=== PATIENT | female | born 1940 | race Caucasian/White ===

== ENCOUNTER → 2017-08-13 | Outpatient (CLI) | payer MEDICARE | LOC: WI 09:37 | PROVIDERS: ATTEND Family Medicine | DX: Z12.31 Encounter for screening mammogram for malignant neoplasm of breast (principal) | CPT/HCPCS: 77063; G0202; 77067 ==

== ENCOUNTER → 2018-06-23 | Outpatient (CLI) | payer MEDICARE ==
--- NOTE | 2018-06-24 22:51 | XCELERA REPORT ---
[address] [address] Transthoracic Echocardiogram Report Name: NAHOMY COLLINS Age: 77 yrs Gender: Female : 1940 Patient Status: Outpatient Patient Location: [facility] Study Date: 06/23/2018 01:22 PM Procedure: A two-dimensional transthoracic echocardiogram with color flow and Doppler was performed. Study Quality: Technically suboptimal. POOR ENDOCARDIAL DEFENITION AND DOPPLER INTEROGATION.NO PARASTERNAL VIEWS OBTAINED. Reason For Study: CHF History: CHF. Ordering Physician: BEAU AUSTIN Performed By: Chastity Mancilla Interpretation Summary The left ventricle is grossly normal size. There is normal left ventricular wall thickness. Left ventricular systolic function is normal. LV EF is > THAN 65% Doppler measurements suggest impaired left ventricular relaxation, which is associated with grade I/IV or mild diastolic dysfunction The right ventricle is not well visualized secondary to technical limitations Right atrium not well visualized secondary to technical limitations The left atrial size is normal. There is no evidence of mitral valve prolapse. There is no mitral valve stenosis. There is no aortic valve stenosis No aortic regurgitation is present. Probably no tricuspid stenosis and probably no TR..Uanable to calculate RVSP due to insufficient TR jet. The pulmonic valve is not well visualized. The aortic root is not well visualized. There is no pericardial effusion. MMode/2D Measurements & Calculations IVSd: 0.93 cm LVIDd: 3.3 cm FS: 38.4 % EDV(MOD-sp4): 46.2 ml LVIDs: 2.0 cm EDV(Teich): 43.9 ml ESV(MOD-sp4): 15.7 ml LVPWd: 0.83 cm ESV(Teich): 13.2 ml EF(MOD-sp4): 66.1 % EF(Teich): 69.9 % SV(MOD-sp4): 30.5 ml Doppler Measurements & Calculations MV E max lisbeth: MV dec slope: Ao V2 max: LV V1 max P.3 cm/sec 191.0 cm/sec2 115.7 cm/sec 4.7 mmHg MV A max lisbeth: MV dec time: 0.26 sec Ao max PG: LV V1 max: 78.9 cm/sec 5.4 mmHg 108.5 cm/sec MV E/A: 0.64 Left Ventricle The left ventricle is grossly normal size. There is normal left ventricular wall thickness. Left ventricular systolic function is normal. LV EF is > THAN 65%. Doppler measurements suggest impaired left ventricular relaxation, which is associated with grade I/IV or mild diastolic dysfunction. The left ventricular wall motion is normal. There is no thrombus. Right Ventricle The right ventricle is not well visualized secondary to technical limitations. Atria Right atrium not well visualized secondary to technical limitations. The left atrial size is normal. Mitral Valve There is no evidence of mitral valve prolapse. There is no mitral valve stenosis. There is no mitral regurgitation noted. Aortic Valve There is no aortic valve stenosis. No aortic regurgitation is present. Tricuspid Valve The tricuspid valve is not well visualized secondary to technical limitations. Probably no tricuspid stenosis and probably no TR..Uanable to calculate RVSP due to insufficient TR jet. Pulmonic Valve The pulmonic valve is not well visualized. Great Vessels The aortic root is not well visualized. Effusions There is no pericardial effusion. : BEAU AUSTIN > Sharmin Westbrook
== END ==
LOC: SP 13:58
PROVIDERS: ATTEND Family Medicine
DX: I50.32 Chronic diastolic (congestive) heart failure (principal)
CPT/HCPCS: 93306

== ENCOUNTER 2018-08-17 18:54 | Emergency (ER) | payer MEDICARE ==
[2018-08-17 19:22] LABS: APPEARANCE,URINE SLIGHTLY-CLOUDY; BILIRUBIN,URINE NEGATIVE (NEGATIVE); COLOR,URINE STRAW; GLUCOSE, URINE NEGATIVE (NEGATIVE); KETONES,URINE NEGATIVE (NEGATIVE); LEUKOCYTE ESTERASE,URINE NEGATIVE (NEGATIVE); NITRITE,URINE NEGATIVE (NEGATIVE); PROTEIN,URINE NEGATIVE (NEGATIVE); URINE SPECIFIC GRAVITY 1.006; UROBILINOGEN,URINE NEGATIVE mg/dL (<2.0)
[2018-08-17] MEDS ORDERED: NORMAL SALINE 500 ML IV ONE (19:39)
--- NOTE | 2018-08-17 19:39 | ER Document Report ---
ED Medical Screen (RME) - General Chief Complaint: Dizziness Stated Complaint: FALL/DIZZY Time Seen by Provider: 08/17/18 19:31 Mode of Arrival: Ambulatory Information source: Patient, [facility] Records Notes: 77-year-old female with hypertension, hyperlipidemia, depression presents with complaint of dizziness, lightheadedness that started 3 hours prior to arrival. Patient states that she stood up and immediately felt like she was going to fall over. She states that she has felt off balance since that time. She denies falling today. She denies any chest pain, slurred speech, focal weakness. Patient has had prior similar symptoms when she was "dehydrated". She denies any vomiting, diarrhea. She states she has been drinking water appropriately. She denies any recent illness. I have greeted and performed a rapid initial assessment of this patient. A comprehensive ED assessment and evaluation of the patient, analysis of test results and completion of medical decision making process we will be contacted by additional ED providers. PHYSICAL EXAMINATION: Vital signs reviewed GENERAL: Well-appearing, well-nourished and in no acute distress. LUNGS: No respiratory distress Musculoskeletal: Normal range of motion NEUROLOGICAL: Normal speech, cranial nerves II through XII intact PSYCH: Normal mood, normal affect. SKIN: Warm, Dry, normal turgor, no rashes or lesions noted. TRAVEL OUTSIDE OF THE [place] IN LAST 30 DAYS: No - HPI Onset: Just prior to arrival Onset/Duration: Sudden, Persistent Quality of pain: No pain Associated Symptoms: Dizzy/lightheaded. denies: Chest pain, Headache, Nausea, Shortness of breath Exacerbated by: Walking Relieved by: Remaining still Similar symptoms previously: Yes Recently seen / treated by doctor: No - Related Data Smoking: Non-smoker Frequency of alcohol use: Occasional Drug Abuse: None Allergies/Adverse Reactions: No Known Allergies Allergy (Unverified 06/10/12 12:40) Past Medical History - Past Medical History Cardiac Medical History: Reports: Hx Hypercholesterolemia, Hx Hypertension - MEDICATION Denies: Hx Heart Attack Pulmonary Medical History: Reports: Hx Asthma - CHILDHOOD Neurological Medical History: Denies: Hx Cerebrovascular Accident, Hx Seizures GI Medical History: Reports: Hx Hiatal Hernia - had repair. Denies: Hx Hepatitis, Hx Ulcer Psychiatric Medical History: Reports: Hx Depression Infectious Medical History: Denies: Hx Hepatitis Past Surgical History: Reports: Hx Bowel Surgery - diverticulum, Hx Hysterectomy , Hx Mastectomy - right/RESTRICTED RIGHT ARM. Denies: Hx Open Heart Surgery, Hx Pacemaker Physical Exam - Vital signs Vitals: Temp Pulse Resp BP Pulse Ox 98.3 F 89 20 145/90 H 96 08/17/18 19:08 08/17/18 19:08 08/17/18 19:08 08/17/18 19:08 08/17/18 19:08 Course - Vital Signs Vital signs: Temp Pulse Resp BP Pulse Ox 98.3 F 89 20 145/90 H 96 08/17/18 19:08 08/17/18 19:08 08/17/18 19:08 08/17/18 19:08 08/17/18 19:08 Doctor's Discharge - Discharge Referrals: BEAU AUSTIN MD [Primary Care Provider] - Follow up as needed
[2018-08-17] MEDS ORDERED: MECLIZINE HCL 25 MG TABLET PO ONE (19:40)
[2018-08-17 20:21] LABS: ABSOLUTE EOSINOPHILS # (AUTO) 0.4 10^3/uL (0.0-0.6); ABSOLUTE LYMPHOCYTES (AUTO) 1.8 10^3/uL (0.5-4.7); ABSOLUTE MONOCYTES (AUTO) 0.7 10^3/uL (0.1-1.4); ABSOLUTE NEUT (AUTO) 3.7 10^3/uL (1.7-8.2); BASOPHILS % (AUTO) 0.6 % (0-2); EOSINOPHILS % (AUTO) 6.1 % (0-6); HEMATOCRIT 48.2 % (36.0-47.0); HEMOGLOBIN 16.6 g/dL (12.0-15.5); LYMPHOCYTES % (AUTO) 26.9 % (13-45); MEAN CORPUSCULAR HEMOGLOBIN 31.5 pg (27.0-33.4); MEAN CORPUSCULAR HGB CONC 34.3 g/dL (32.0-36.0); MEAN CORPUSCULAR VOLUME 92 fl (80-97); MONOCYTES % (AUTO) 10.4 % (3-13); PLATELET COUNT 246 10^3/uL (150-450); RED BLOOD COUNT 5.25 10^6/uL (3.72-5.28); RED CELL DISTRIBUTION WIDTH 13.5 % (11.5-14.0); TOTAL CELLS COUNTED % (AUTO) 100 %; WHITE BLOOD COUNT 6.5 10^3/uL (4.0-10.5)
--- NOTE | 2018-08-17 20:37 | ER Document Report ---
ED Dizziness/Weakness - General Chief Complaint: Dizziness Stated Complaint: FALL/DIZZY Time Seen by Provider: 08/17/18 20:37 Mode of Arrival: Ambulatory Information source: Patient Notes: Patient is a 77-year-old female with prior history of vertigo who presents with isolated episode of dizziness resulting in a mechanical fall earlier this evening. Patient reports walking with the assistance of a cane, got out of her vehicle and felt dizzy but continued to walk. She used the restroom without difficulty, then while ambulating back to her vehicle she "stumbled" and fell to the concrete on her bottom, denies hitting her head or passing out. Patient was able to ambulate back to her vehicle but continued to feel dizzy, denies syncope, no headache or vision changes. Patient denies recent illness or fevers , no medication changes or new medications. Patient reports this is similar but worse than her previous episodes. TRAVEL OUTSIDE OF THE [place] IN LAST 30 DAYS: No - HPI Patient complains to provider of: Dizziness, Vertigo Onset: This evening Onset/Duration: Sudden, Gone Quality of pain: No pain Severity: Mild Pain Level: Denies Context: Vertigo Associated symptoms: None Exacerbated by: Change in position Baseline gait: Uses a cane - Related Data Allergies/Adverse Reactions: No Known Allergies Allergy (Unverified 06/10/12 12:40) Past Medical History - General Information source: Patient, [facility] Records - Social History Smoking Status: Never Smoker Cigarette use (# per day): No Chew tobacco use (# tins/day): No Smoking Education Provided: No Frequency of alcohol use: Occasional Drug Abuse: None Lives with: Family Family History: Reviewed & Not Pertinent Patient has suicidal ideation: No Patient has homicidal ideation: No - Past Medical History Cardiac Medical History: Reports: Hx Hypercholesterolemia, Hx Hypertension - MEDICATION Denies: Hx Heart Attack Pulmonary Medical History: Reports: Hx Asthma - CHILDHOOD EENT Medical History: Reports: None Neurological Medical History: Reports: None. Denies: Hx Cerebrovascular Accident, Hx Seizures Endocrine Medical History: Reports: None Renal/ Medical History: Reports: None. Denies: Hx Peritoneal Dialysis Malignancy Medical History: Reports: None GI Medical History: Reports: Hx Hiatal Hernia - had repair. Denies: Hx Hepatitis, Hx Ulcer Musculoskeletal Medical History: Reports None Skin Medical History: Reports None Psychiatric Medical History: Reports: Hx Depression Traumatic Medical History: Reports: None Infectious Medical History: Reports: None. Denies: Hx Hepatitis Past Surgical History: Reports: Hx Bowel Surgery - diverticulum, Hx Hysterectomy , Hx Mastectomy - right/RESTRICTED RIGHT ARM. Denies: Hx Open Heart Surgery, Hx Pacemaker - Immunizations Immunizations up to date: Yes Hx Diphtheria, Pertussis, Tetanus Vaccination: Yes Hx Pneumococcal Vaccination: 06/14/10 Review of Systems - Review of Systems -: Yes ROS unobtainable due to patient's medical condition Constitutional: No symptoms reported EENT: No symptoms reported Cardiovascular: Dizziness, Lightheaded. denies: Chest pain, Palpitations Respiratory: No symptoms reported Gastrointestinal: No symptoms reported Genitourinary: No symptoms reported Female Genitourinary: No symptoms reported Musculoskeletal: No symptoms reported Skin: No symptoms reported Hematologic/Lymphatic: No symptoms reported Neurological/Psychological: No symptoms reported -: Yes All other systems reviewed and negative Physical Exam - Vital signs Vitals: Temp Pulse Resp BP Pulse Ox 98.3 F 89 20 145/90 H 96 08/17/18 19:08 08/17/18 19:08 08/17/18 19:08 08/17/18 19:08 08/17/18 19:08 Interpretation: Normal - General General appearance: Appears well, Alert In distress: None - HEENT Head: Normocephalic, Atraumatic Eyes: Normal Pupils: PERRL - Respiratory Respiratory status: No respiratory distress Chest status: Nontender Breath sounds: Normal Chest palpation: Normal - Cardiovascular Rhythm: Regular Heart sounds: Normal auscultation Murmur: No - Abdominal Inspection: Normal Distension: No distension Bowel sounds: Normal Tenderness: Nontender Organomegaly: No organomegaly - Rectal Tenderness: No - Deferred - Genitourinary Notes: Deferred - Back Back: Normal, Nontender - Extremities General upper extremity: Normal inspection, Nontender, Normal color, Normal ROM , Normal temperature General lower extremity: Normal inspection, Nontender, Normal color, Normal ROM , Normal temperature, Normal weight bearing. No: Ottoniel's sign - Neurological Neuro grossly intact: Yes Cognition: Normal Orientation: AAOx4 [place] Coma Scale Eye Opening: Spontaneous [place] Coma Scale Verbal: Oriented Antoine Coma Scale Motor: Obeys Commands Anto[place] Coma Scale Total: 15 Speech: Normal Motor strength normal: LUE, RUE, LLE, RLE Sensory: Normal - Psychological Associated symptoms: Normal affect, Normal mood - Skin Skin Temperature: Warm Skin Moisture: Dry Skin Color: Normal Course - Re-evaluation Re-evalutation: 08/17/18 21:49 Plan is to obtain blood work, CT head, give oral meclizine, and reassess. 08/18/18 00:[address] and blood work are negative for acute pathology. Patient feels mildly improved with meclizine, was able to ambulate but still felt "spinny." We will give oral Valium and reassess. 08/18/18 04:24 Patient initially was not improved after Valium, however after oral Benadryl she has had a resolution of symptoms. Plan will be to discharge the patient home with return precautions and follow-up with her physician. The patient both understands and agrees with the plan. - Vital Signs Vital signs: Temp Pulse Resp BP Pulse Ox 98.3 F 78 16 117/80 92 08/17/18 19:08 08/17/18 21:39 08/18/18 03:01 08/18/18 03:00 08/18/18 03:01 - Laboratory Result Diagrams: 08/17/18 20:06 08/17/18 20:06 Laboratory results interpreted by me: 08/17/18 08/17/18 20:06 20:06 Hgb 16.6 H Hct 48.2 H Eosinophils % 6.1 H Potassium 3.0 L* Chloride 95 L Carbon Dioxide 37 H BUN 21 H Calcium 10.3 H - Diagnostic Test Radiology reviewed: Reports reviewed - EKG Interpretation by [facility] EKG shows normal: Sinus rhythm Rate: Normal Rhythm: NSR [place]/QRS: No: LBBB P Waves: No: KUSUM, LAE, Absent, AV Dissociation, Other Heart block present: No: 1st Degree, Mobitz 1, Mobitz 2, CHB (3rd degree block) When compared to previous EKG there are: No significant change Discharge - Discharge Clinical Impression: Vertigo Condition: Good Disposition: HOME, SELF-CARE Instructions: Vertigo ([facility]) Additional Instructions: Please follow-up with your regular physician. Return to the emergency department if you experience vision changes, gait instability, uncontrollable nausea, or any other concerning symptom. Referrals: BEAU AUSTIN MD [Primary Care Provider] - Follow up as needed Print Language: Pashto
[2018-08-17 20:44] LABS: ANION GAP 13 (5-19); BLOOD UREA NITROGEN 21 mg/dL (7-20); CALCIUM 10.3 mg/dL (8.4-10.2); CARBON DIOXIDE 37 mmol/L (22-30); CHLORIDE 95 mmol/L (98-107); GLUCOSE 110 mg/dL (75-110)
[2018-08-17] MEDS ORDERED: POTASSIUM CHLORIDE 10 MEQ CAPSULE.ER PO ONE (21:32)
--- NOTE | 2018-08-17 22:42 | RADIOLOGY REPORT (SQ) ---
CLINICAL DATA: 77-year-old female with dizziness TECHNICAL DATA: Multiple axial CT images of the brain were performed followed by sagittal and coronal reconstructed images. The CT study is performed according to ALARA (as low as reasonably achievable) or ALARA/IMAGE GENTLY, with automatic adjustment of mA and/or kV according to patient size. Performed on: 08/17/2018 at 9:54 PM Comparisons: Prior brain MRI performed on 01/07/[address] performed on 12/19/2012. FINDINGS: There is no evidence of mass, acute mass effect or midline shift. There are no acute extra-axial fluid collections. There is no evidence of acute intracranial hemorrhage. The cerebral sulci and ventricles are prominent consistent with age-related volume loss. There are scattered patchy areas of decreased subcortical and periventricular attenuation most consistent with mild chronic microangiopathy. There is no significant mucosal thickening of the paranasal sinuses. The mastoid air cells are clear. The orbital contents are grossly unremarkable. No acute osseous abnormalities are identified. No focal soft tissue abnormalities are identified. IMPRESSION: 1. There is no evidence of acute intracranial pathology. 2. There is mild age-related cerebral volume loss with findings consistent with mild chronic microangiopathy.
[2018-08-18] MEDS ORDERED: DIAZEPAM 2 MG TABLET PO ONE (00:24)
[2018-08-18] MEDS ORDERED: DIPHENHYDRAMINE HCL 25 MG CAPSULE PO ONE (02:52)
[2018-08-18 07:07] VITALS: BP 112/73
--- NOTE | 2018-08-18 12:00 | EKG REPORT ---
SEVERITY:- BORDERLINE ECG - SINUS RHYTHM BORDERLINE PROLONGED QT INTERVAL : Confirmed by: Lore Koroma 18-Aug-2018 11:59:38
== END 2018-08-18 07:07 | disposition home or self-care (01) ==
LOC: ER 18:54
DX: R42 Dizziness and giddiness (principal); I10 Essential (primary) hypertension
CPT/HCPCS: 93005; 99285; 36415; 85025; 80048; 81001; 84484; 70450; 93010; A9270 ×3; J3490

== ENCOUNTER → 2018-09-22 | Outpatient (CLI) | payer MEDICARE ==
--- NOTE | 2018-09-22 11:08 | WOMENS IMAGING REPORT ---
EXAM DESCRIPTION: 3D SCREENING MAMMO BILAT COMPLETED DATE/TIME: 09/22/2018 10:25 am REASON FOR STUDY: ROUTINE BILATERAL SCREENING;Z12.31 Z12.31 ENCNTR SCREEN MAMMOGRAM FOR MALIGNANT N EOPLASM OF JENY COMPARISON: 08/13/2017 TECHNIQUE: Standard craniocaudal and mediolateral oblique views of each breast recorded using digita l acquisition and breast tomosynthesis. LIMITATIONS: None. FINDINGS: Findings present which are benign by mammographic criteria. No suspicious masses, calcifi cations or architectural distortion. Pertinent benign findings: Old right upper outer quadrant lumpectomy site with benign coarse dense dy strophic calcification. Postsurgical changes from bilateral breast reduction. Benign bilateral sav[address] st parenchymal and vascular calcifications. Read with the assistance of CAD. .[facility] - R2 Cenova Version 1.3 .[facility] - R2 Cenova Version 1.3 .[facility] - R2 Cenova Version 2.4 .[facility] [place] R2 Cenova Version 2.4 .[facility] - R2 Back Tender Fourdrinier Version 9.2 Benign mammographic findings may include one or more of the following: Smooth masses, popcorn/rim/co arse calcifications, asymmetries, post-procedure changes, and lesions with long-standing stability. IMPRESSION: BENIGN MAMMOGRAPHIC FINDINGS. BIRADS 2 BREAST DENSITY: c. The breasts are heterogeneously dense, which may obscure small masses. BIRAD: 2 BENIGN FINDING(S) RECOMMENDATION: RECOMMENDATION: ROUTINE SCREENING COMMENT: The patient has been notified of the results by letter per SA requirements. Additional no tification policies are in place for contacting patient with suspicious or incomplete findings. Quality ID #[id number]: The [employer] recommends an annual screening mammogram for women aged 40 years or over. This facility utilizes a reminder system to ensure that all patients receive reminder letters, and/or direct phone calls for appointments. This includes reminders for routine scr eening mammograms, diagnostic mammograms, or other Breast Imaging Interventions when appropriate. Th is patient will be placed in the appropriate reminder system. The [employer] (ACR) has developed recommendations for screening MRI of the breast s in certain patient populations, to be used in conjunction with mammography. Breast MRI surveillanc e may be appropriate for women with more than 20% lifetime risk of developing breast cancer as deter mined by genetic testing, significant family history of the disease, or history of mantle radiation f or Hodgkins Disease. ACR Practice Guidelines 2008. DBT Technology DBT is a type of tomographic mammography. With conventional mammography, overlapping breast tissue ma y make lesions difficult to detect, even with good compression. DBT uses an x-ray tube that rotates a round the breast, taking images at different angles. These images are then combined to create thin sl ices of the breast that the radiologist can view as a 3D reconstruction. The LiveTop unit can perform full-field digital mammograms (2D imaging); or DBT (3D imaging); or both, in a combination mode that quickly performs both the mammogram and the tomosynthesis scan while the breast is still compressed. PQRS 6045F: Fluoroscopic imaging is not utilized for breast tomosynthesis. TECHNICAL DOCUMENTATION: FINDING NUMBER: (1) ASSESSMENT: (1) JOB ID: [id number] [employer]- All Rights Reserved Reading location - IP/workstation name: [email or web address]
== END ==
LOC: RAD 10:02
PROVIDERS: ATTEND Family Medicine
DX: Z12.31 Encounter for screening mammogram for malignant neoplasm of breast (principal)
CPT/HCPCS: 77063; 77067

== ENCOUNTER 2018-11-28 20:21 | Emergency (ER) | payer MEDICARE ==
--- NOTE | 2018-11-28 22:50 | ER Document Report ---
ED Fall - General Chief Complaint: Fall Injury Stated Complaint: BACK PAIN Time Seen by Provider: 11/28/18 22:43 Primary Care Provider: BEAU AUSTIN MD [Primary Care Provider] - Follow up in 1 week Notes: Patient is a 78-year-old female who presents to the emergency department with a chief complaint of right posterior rib pain. She was in the kitchen around 2 PM this afternoon and turn too fast and hit her back on a kitchen cabinet. She states that she fell, denies hitting her head, denies any loss of consciousness, denies any shortness of breath. When she does take a really big deep breath and that area that she hit hurts. She does have a history of allergies, hypertension, depression, hyperlipidemia, and urinary incontinence. She denies any altered mental status. She is alert and oriented. TRAVEL OUTSIDE OF THE [place] IN LAST 30 DAYS: No - Related data Allergies/Adverse Reactions: No Known Allergies Allergy (Unverified 06/10/12 12:40) Past Medical History - Social History Smoking Status: Unknown if Ever Smoked Frequency of alcohol use: None Drug Abuse: None Family History: Reviewed & Not Pertinent - Past Medical History Cardiac Medical History: Reports: Hx Hypercholesterolemia, Hx Hypertension - MEDICATION Denies: Hx Heart Attack Pulmonary Medical History: Reports: Hx Asthma - CHILDHOOD Neurological Medical History: Denies: Hx Cerebrovascular Accident, Hx Seizures Renal/ Medical History: Denies: Hx Peritoneal Dialysis GI Medical History: Reports: Hx Hiatal Hernia - had repair. Denies: Hx Hepatitis, Hx Ulcer Psychiatric Medical History: Reports: Hx Depression Infectious Medical History: Denies: Hx Hepatitis Past Surgical History: Reports: Hx Bowel Surgery - diverticulum, Hx Hysterectomy, Hx Mastectomy - right/RESTRICTED RIGHT ARM. Denies: Hx Open Heart Surgery, Hx Pacemaker - Immunizations Immunizations up to date: Yes Hx Diphtheria, Pertussis, Tetanus Vaccination: Yes Hx Pneumococcal Vaccination: 06/14/10 Review of Systems - Review of Systems Notes: REVIEW OF SYSTEMS: CONSTITUTIONAL : Denies recent illness. Denies recent unintentional weight loss. Denies fever, chills, or sweats. EENT: Denies eye, ear, throat, or mouth pain, discharge, or symptoms. Denies nasal or sinus congestion. CARDIOVASCULAR: Denies chest pain. RESPIRATORY: Denies shortness of breath, cough, congestion, difficulty breathing, or wheezing. GASTROINTESTINAL: Denies nausea, vomiting, and diarrhea. Denies abdominal pain. Denies constipation. GENITOURINARY: Denies difficulty urinating, burning, blood in urine, urgency or frequency. MUSCULOSKELETAL: See HPI SKIN: Denies rash, itchiness, or lesions HEMATOLOGIC : Denies easy bruising or bleeding. LYMPHATIC: Denies swollen, painful, enlarged glands. NEUROLOGICAL: Denies no numbness or tingling denies weakness. Denies headache. Denies altered mental status. Denies alteration in speech. PSYCHIATRIC: Denies stress, anxiety, alteration in sleep patterns, or depression. All other systems reviewed and negative. Physical Exam - Vital signs Vitals: Temp Pulse Resp BP Pulse Ox 98.3 F 90 16 137/98 H 95 11/28/18 20:25 11/28/18 20:25 11/28/18 20:25 11/28/18 20:25 11/28/18 20:25 - Notes Notes: PHYSICAL EXAMINATION: GENERAL: Appears well, healthy, well-nourished, no acute distress. HEAD: Normocephalic, atraumatic. EYES: PERRL, conjunctiva normal, all extraocular movements intact, sclera nonicteric ENT: Moist mucous membranes. NECK: Supple, no noticeable swelling, redness, rash. Normal range of motion. LUNGS: Equal breath sounds bilaterally and clear to auscultation. No wheezes rales or rhonchi. CARDIOVASCULAR: S1-S2, regular rate, regular rhythm. Radial pulses 2+, normal. ABDOMEN: Normoactive bowel sounds. Soft, nontender, no guarding, no rebound tenderness, and no masses palpated. EXTREMITIES: Normal strength and range of motion, no pitting or edema. No cyanosis. NEUROLOGICAL: Moves all extremities upon command. Strength 5/5 in all extremities. PSYCH: Normal mood, normal affect. SKIN: Warm, dry. No rash, lesions, ulcerations noted. Normal skin turgor. BACK: Tenderness to right side of back. No ecchymosis appreciated. Course - Re-evaluation Re-evalutation: 11/28/18 23:45 Patient's x-rays are negative for any acute fracture. She will be sent home with Tylenol for pain. She will follow-up with her primary care provider. I do not suspect pneumothorax, pneumonia, or any life-threatening etiology at this time. Verbal discharge instructions were given to the patient. They verbalized understanding. They are stable for discharge. - Vital Signs Vital signs: Temp Pulse Resp BP Pulse Ox 98.3 F 82 16 135/82 H 97 11/28/18 20:25 11/29/18 00:08 11/29/18 00:08 11/29/18 00:08 11/29/18 00:08 Discharge - Discharge Clinical Impression: Fall Condition: Stable Disposition: HOME, SELF-CARE Additional Instructions: You were seen today in the emergency department after a fall and rib pain. Fortunately, there is no fracture. Please follow-up with your primary care provider in regards to this visit. You can take Tylenol as needed for the pain. Although it hurts, please still try to take nice deep breaths in to prevent pneumonia. If you develop a fever greater than 100.4 F, have a cough, or have any symptoms that are worrisome to you, please return to the emergency department. Referrals: BEAU AUSTIN MD [Primary Care Provider] - Follow up in 1 week
--- NOTE | 2018-11-28 23:40 | RADIOLOGY REPORT (SQ) ---
EXAM DESCRIPTION: XR RIBS UNILATERAL WITH CHEST COMPLETED DATE/TME: 11/28/2018 22:50 CLINICAL HISTORY: 78 years, Female, Hit rib Comparison: None FINDINGS: No focal lung consolidation. No pleural effusion. No pneumothorax. Cardiac and mediastinal silhouette is unremarkable. Dedicated views of the right ribs show no acute displaced rib fractures. Soft tissues are unremarkable. IMPRESSION: No acute findings. No focal lung consolidation.
[2018-11-29 00:13] VITALS: BP 135/82
== END 2018-11-29 00:10 | disposition home or self-care (01) ==
LOC: ER 20:21
DX: M54.9 Dorsalgia, unspecified (principal); R07.81 Pleurodynia; W22.8XXA Striking against or struck by other objects, initial encounter; I10 Essential (primary) hypertension; Z79.899 Other long term (current) drug therapy; J45.909 Unspecified asthma, uncomplicated
CPT/HCPCS: 99283

== ENCOUNTER → 2019-09-29 | Outpatient (CLI) | payer MEDICARE, OTHER ==
--- NOTE | 2019-09-29 11:11 | WOMENS IMAGING REPORT ---
EXAM DESCRIPTION: 3D SCREENING MAMMO BILAT COMPLETED DATE/TIME: 09/29/2019 10:31 am REASON FOR STUDY: Z12.31 ENCOUNTER FOR SCREENING MAMMOGRAM FOR MALIGNANT NEOPLASM OF BREAST Z12.31 ENCNTR SCREEN MAMMOGRAM FOR MALIGNANT NEOPLASM OF JENY COMPARISON: 2017 to 2018 EXAM PARAMETERS: Views: Standard craniocaudal and mediolateral oblique views of each breast recorded using digital acquisition and breast tomosynthesis. Read with the assistance of CAD. .[facility] - R2 Model [employer] Maker Plaster Version 9.2 LIMITATIONS: None. FINDINGS: No suspicious masses, suspicious calcifications or architectural distortion. No areas of c oncern. IMPRESSION: NEGATIVE MAMMOGRAM. BIRADS 1. BREAST DENSITY: c. The breasts are heterogeneously dense, which may obscure small masses. BIRAD: ASSESSMENT: 1 NEGATIVE RECOMMENDATION: ROUTINE SCREENING COMMENT: The patient has been notified of the results by letter per MQSA requirements. Additional no tification policies are in place for contacting patient with suspicious or incomplete findings. Quality ID #[id number]: The [employer] recommends an annual screening mammogram for women aged 40 years or over. This facility utilizes a reminder system to ensure that all patients receive reminder letters, and/or direct phone calls for appointments. This includes reminders for routine scr eening mammograms, diagnostic mammograms, or other Breast Imaging Interventions when appropriate. Th is patient will be placed in the appropriate reminder system. TECHNICAL DOCUMENTATION: FINDING NUMBER: (1) ASSESSMENT: (1) JOB ID: [id number] [employer]- All Rights Reserved Reading location - IP/workstation name: [email or web address]
== END ==
LOC: WI 10:06
PROVIDERS: ATTEND Family Medicine
DX: Z12.31 Encounter for screening mammogram for malignant neoplasm of breast (principal)
CPT/HCPCS: 77063; 77067

== ENCOUNTER 2020-08-17 08:25 | Inpatient (IN) | payer MEDICARE ==
[2020-08-17] MEDS ORDERED: NORMAL SALINE 1000 ML 1,000 ML IV ONE ×2 (09:17→13:34)
[2020-08-17] MEDS ORDERED: MORPHINE SULFATE 10 MG/ML INJ IV ONE (09:22)
[2020-08-17] MEDS ORDERED: ONDANSETRON HCL INJ/PF 4 MG/2 ML SDV IV ONE (09:22)
[2020-08-17 09:26] LABS: ABSOLUTE LYMPHOCYTES (AUTO) 0.8 10^3/uL (0.5-4.7); ABSOLUTE MONOCYTES (AUTO) 0.3 10^3/uL (0.1-1.4); ABSOLUTE NEUT (AUTO) 9.7 10^3/uL (1.7-8.2); BASOPHILS % (AUTO) 0.1 % (0-2); EOSINOPHILS % (AUTO) 0.1 % (0-6); HEMATOCRIT 46.9 % (36.0-47.0); HEMOGLOBIN 15.5 g/dL (12.0-15.5); LYMPHOCYTES % (AUTO) 7.6 % (13-45); MEAN CORPUSCULAR HEMOGLOBIN 30.5 pg (27.0-33.4); MEAN CORPUSCULAR VOLUME 92 fl (80-97); MONOCYTES % (AUTO) 2.7 % (3-13); PLATELET COUNT 195 10^3/uL (150-450); RED BLOOD COUNT 5.08 10^6/uL (3.72-5.28); RED CELL DISTRIBUTION WIDTH 13.9 % (11.5-14.0); SEGMENTED NEUTROPHILS % (AUTO) 89.5 % (42-78); TOTAL CELLS COUNTED % (AUTO) 100 %; WHITE BLOOD COUNT 10.8 10^3/uL (4.0-10.5)
[2020-08-17 09:28] LABS: INTERNATIONAL RATION (INR) 1.12; PROTHROMBIN TIME 14.6 SEC (11.4-15.4)
[2020-08-17 09:30] LABS: PARTIAL THROMBOPLASTIN TIME 30.9 SEC (23.5-35.8)
[2020-08-17 09:38] LABS: ALBUMIN 4.7 g/dL (3.5-5.0); ALKALINE PHOSPHATASE 82 U/L (38-126); ANION GAP 11 (5-19); ASPARTATE AMINO TRANSFERASE 37 U/L (14-36); BILIRUBIN,DIRECT 0.2 mg/dL (0.0-0.4); BILIRUBIN,TOTAL 1.4 mg/dL (0.2-1.3); BLOOD UREA NITROGEN 16 mg/dL (7-20); CALCIUM 9.9 mg/dL (8.4-10.2); CARBON DIOXIDE 30 mmol/L (22-30); CHLORIDE 100 mmol/L (98-107); GLUCOSE 147 mg/dL (75-110); POTASSIUM 3.3 mmol/L (3.6-5.0); TOTAL PROTEIN 7.8 g/dL (6.3-8.2)
--- NOTE | 2020-08-17 10:06 | RADIOLOGY REPORT (SQ) ---
EXAM DESCRIPTION: ACUTE ABDOMEN SERIES IMAGES COMPLETED DATE/TIME: 08/17/2020 9:41 am REASON FOR STUDY: abd pain COMPARISON: PA view of the chest from 11/28/2018. NUMBER OF VIEWS: Three views. TECHNIQUE: An AP view of the chest and AP supine and upright views of the abdomen were obtained. LIMITATIONS: None. FINDINGS: CHEST: The cardiac silhouette is enlarged. There is no consolidation, pleural effusion or pneumothorax. FREE AIR: None. BOWEL GAS PATTERN: There is a cluster of air-filled dilated loops of bowel in the left upper quadrant . There is a relative paucity of gas in the remainder of the abdomen. CALCIFICATIONS: The round density in the left upper quadrant is of unclear origin. HARDWARE: Sacral stimulator. SOFT TISSUES: No acute gross abnormality. BONES: Degenerative spondylosis and levoconvex curvature of the lumbar spine. OTHER: No other findings. IMPRESSION: 1. Cardiomegaly without a superimposed acute cardiopulmonary process. 2. Cluster of air-filled dilated loops of bowel in the left upper quadrant. Correlation with a CT is recommended to exclude a mechanical obstruction. TECHNICAL DOCUMENTATION: JOB ID: [id number] 2010 [employer]- All Rights Reserved Reading location - IP/workstation name: [email or web address]
--- NOTE | 2020-08-17 10:16 | ER Document Report ---
Entered by KARTIK MCCARTY SCRIBE 08/17/20 0854 Acting as scribe for:YARY LUNA MD ED GI/ - General Chief Complaint: Abdominal Pain Stated Complaint: ABDOMINAL PAIN Time Seen by Provider: 08/17/20 08:44 Primary Care Provider: BEAU AUSTIN MD [Primary Care Provider] - Follow up as needed Mode of Arrival: Ambulatory Information source: Patient Notes: This 79 year old female patient presents to the ED today with complaints of bila teral lower quadrant abdominal pain that started yesterday afternoon. Patient describes the pain as gas. She states that she ate a piece of sausage Thursday night that wasn't completely cooked. She reports that her last bowel movement was x3 days ago and that she usually has bowel movements every x3 days. She notes sitting on the commode all night yesterday without any success or passing gas; no bowel movement this morning as well. She did not eat this morning. She discloses a history of hemorrhoids, but denies taking any stool softeners. Brother at bedside reports that the patient has a history of impacted bowel x15 years ago and that these symptoms are similar. Denies fever, chills, nausea, vomiting, diarrhea, rectal bleeding, or chest pain. TRAVEL OUTSIDE OF THE [place] IN LAST 30 DAYS: No - Related Data Allergies/Adverse Reactions: No Known Allergies Allergy (Unverified 06/10/12 12:40) Past Medical History - General Information source: Patient, [facility] Records - Social History Smoking Status: Never Smoker Cigarette use (# per day): No Chew tobacco use (# tins/day): No Smoking Education Provided: No Frequency of alcohol use: None Drug Abuse: None Lives with: Family Family History: Reviewed & Not Pertinent Patient has suicidal ideation: No Patient has homicidal ideation: No - Past Medical History Cardiac Medical History: Reports: Hx Hypercholesterolemia, Hx Hypertension - MEDICATION Pulmonary Medical History: Reports: Hx Asthma - CHILDHOOD GI Medical History: Reports: Hx Hiatal Hernia - had repair Psychiatric Medical History: Reports: Hx Depression Past Surgical History: Reports: Hx Bowel Surgery - diverticulum, Hx Hysterectomy, Hx Mastectomy - right/RESTRICTED RIGHT ARM - Immunizations Immunizations up to date: Yes Hx Diphtheria, Pertussis, Tetanus Vaccination: Yes Hx Pneumococcal Vaccination: 06/14/10 Review of Systems - Review of Systems Constitutional: See HPI. denies: Chills, Fever EENT: No symptoms reported Cardiovascular: See HPI. denies: Chest pain Respiratory: No symptoms reported Gastrointestinal: See HPI, Abdominal pain, Constipation, Last bowel movement - 08/14/2020. denies: Diarrhea, Nausea, Vomiting, Rectal bleeding Genitourinary: No symptoms reported Female Genitourinary: No symptoms reported Musculoskeletal: No symptoms reported Skin: No symptoms reported Hematologic/Lymphatic: No symptoms reported Neurological/Psychological: No symptoms reported -: Yes All other systems reviewed and negative Physical Exam - Vital signs Vitals: Temp Pulse Resp BP Pulse Ox 98.0 F 112 H 18 125/68 95 08/17/20 08:31 08/17/20 08:31 08/17/20 08:31 08/17/20 08:31 08/17/20 08:31 Interpretation: Normal - General General appearance: Alert In distress: Moderate - HEENT Head: Normocephalic, Atraumatic Eyes: Normal Pupils: PERRL Neck: Normal, Supple - Respiratory Respiratory status: No respiratory distress Chest status: Nontender Breath sounds: Decreased air movement - Diminished breath sounds Chest palpation: Normal - Cardiovascular Rhythm: Regular Heart sounds: Normal auscultation Murmur: No Friction rub: No Gallop: None auscultated - Abdominal Inspection: Normal Distension: No distension Bowel sounds: Hypoactive Tenderness: Tender - Bilateral lower quadrant tenderness to palpation, Rebound - LLQ Organomegaly: No organomegaly - Back Back: Normal, Nontender - Extremities General upper extremity: Normal inspection General lower extremity: Normal inspection. No: Edema - Neurological Neuro grossly intact: Yes Orientation: AAOx4 [place] Coma Scale Eye Opening: Spontaneous [place] Coma Scale Verbal: Oriented [place] Coma Scale Motor: Obeys Commands Anto[place] Coma Scale Total: 15 - Psychological Associated symptoms: Normal affect, Normal mood - Skin Skin Temperature: Warm Skin Moisture: Dry Skin Color: Normal Course - Re-evaluation Re-evalutation: 08/17/20 13:[address] abdomen and pelvis oral and IV contrast study shows acute appendicitis and abnormal position of the distended cecum in the left upper quadrant consider relation for a cecal volvulus. - Vital Signs Vital signs: Temp Pulse Resp BP Pulse Ox 98.0 F 112 H 18 125/68 95 08/17/20 08:31 08/17/20 08:31 08/17/20 08:31 08/17/20 08:31 08/17/20 08:31 08/17/20 13:51 Vital signs show sinus tachycardia at 112 afebrile - Laboratory Result Diagrams: 08/17/20 08:56 08/17/20 08:56 Laboratory results interpreted by me: 08/17/20 08/17/20 08/17/20 08:56 08:56 10:08 WBC 10.8 H Lymph % (Auto) 7.6 L [place] % (Auto) 2.7 L Absolute Neuts (auto) 9.7 H Seg Neutrophils % 89.5 H Potassium 3.3 L Glucose 147 H Total Bilirubin 1.4 H AST 37 H Lipase 19.3 L Urine Protein 30 H Urine Ketones 80 H Urine Blood SMALL H Ur Leukocyte Esterase TRACE H Laboratory abnormalities show white blood cell count 10.5 and a bilirubin of 1.4 lipase of 19 potassium of 3.3 08/17/20 13:53 08/17/20 08:56 08/17/20 08:56 MCV 92 fl (80-97) 08/17/20 08:56 MCH 30.5 pg (27.0-33.4) 08/17/20 08:56 MCHC 33.0 g/dL (32.0-36.0) 08/17/20 08:56 RDW 13.9 % (11.5-14.0) 08/17/20 08:56 Seg Neutrophils % 89.5 % (42-78) H 08/17/20 08:56 Chloride 100 mmol/L (98-107) 08/17/20 08:56 Carbon Dioxide 30 mmol/L (22-30) 08/17/20 08:56 Anion Gap 11 (5-19) 08/17/20 08:56 Est GFR ( Amer) > 60 (>60) 08/17/20 08:56 Glucose 147 mg/dL (75-110) H 08/17/20 08:56 Lactic Acid 1.7 mmol/L (0.7-2.1) 08/17/20 10:08 Calcium 9.9 mg/dL (8.4-10.2) 08/17/20 08:56 Total Bilirubin 1.4 mg/dL (0.2-1.3) H 08/17/20 08:56 AST 37 U/L (14-36) H 08/17/20 08:56 Alkaline Phosphatase 82 U/L (38-126) 08/17/20 08:56 Total Protein 7.8 g/dL (6.3-8.2) 08/17/20 08:56 Albumin 4.7 g/dL (3.5-5.0) 08/17/20 08:56 Lipase 19.3 U/L (23-300) L 08/17/20 08:56 Urine Color YELLOW 08/17/20 10:08 Urine Appearance SLIGHTLY-CLOUDY 08/17/20 10:08 Urine pH 5.0 (5.0-9.0) 08/17/20 10:08 Ur Specific [place] 1.024 08/17/20 10:08 Urine Protein 30 mg/dL (NEGATIVE) H 08/17/20 10:08 Urine Glucose (UA) NEGATIVE mg/dL (NEGATIVE) 08/17/20 10:08 Urine Ketones 80 mg/dL (NEGATIVE) H 08/17/20 10:08 Urine Blood SMALL (NEGATIVE) H 08/17/20 10:08 Urine Nitrite NEGATIVE (NEGATIVE) 08/17/20 10:08 Ur Leukocyte Esterase TRACE (NEGATIVE) H 08/17/20 10:08 Urine WBC (Auto) 1 /HPF 08/17/20 10:08 Urine RBC (Auto) 1 /HPF 08/17/20 10:08 08/17/20 08:56 Troponin I < 0.012 - Diagnostic Test Radiology reviewed: Image reviewed, Reports reviewed Radiology results interpreted by me: 08/17/20 13:38 Acute Abdomen Series 08/17/20 09:15 IMPRESSION: 1. Cardiomegaly without a superimposed acute cardiopulmonary process. 2. Cluster of air-filled dilated loops of bowel in the left upper quadrant. Correlation with a CT is recommended to exclude a mechanical obstruction. Abdomen/Pelvis CT 08/17/20 12:00 IMPRESSION: 1. Findings as detailed above consistent with an acute appendicitis. There is no periappendiceal abscess. 2. Abnormal position of the distended cecum in the left upper quadrant - consider surgical evaluation for a cecal volvulus. 3. Questionable nodule in the right perihepatic space (between the 10th and 11th ribs on image 24 of series 3) that could represent an exophytic hepatic mass. Consider further evaluation with a nonemergent ultrasound. 08/17/20 13:53 Acute abdominal series plain film x-rays shows cardiomegaly but no acute cardiopulmonary process flat and upright abdomen shows a cluster of air filled dilated loops of bowel Abdominal pelvis CT with IV and oral contrast shows a distended distended cecum in the left upper quadrant consistent with a cecal volvulus and acute appendicitis. Case was discussed with Dr. Heller - EKG Interpretation by Me Additional EKG results interpreted by me: 08/17/20 13:55 Twelve-lead EKG shows sinus tachycardia rate of 104 normal axis normal intervals [place] QRS and QT intervals. No acute ST elevation to suggest a STEMI - Consults Dr. Heller, Surgicalist Time consulted: 13:35 Consulted provider: will come to ER Discharge - Discharge Clinical Impression: Acute appendicitis, Cecal volvulus, Hypokalemia Condition: Serious Disposition: ADMITTED INPATIENT Admitting Provider: Surgicalist - Pnia BEDOYA Unit Admitted: Surgical Floor Referrals: BEAU AUSTIN MD [Primary Care Provider] - Follow up as needed I personally performed the services described in the documentation, reviewed and edited the documentation which was dictated to the scribe in my presence, and it accurately records my words and actions.
[2020-08-17 10:34] LABS: APPEARANCE,URINE SLIGHTLY-CLOUDY; BILIRUBIN,URINE NEGATIVE (NEGATIVE); COLOR,URINE YELLOW; GLUCOSE, URINE NEGATIVE (NEGATIVE); KETONES,URINE 80 mg/dL (NEGATIVE); LEUKOCYTE ESTERASE,URINE TRACE (NEGATIVE); NITRITE,URINE NEGATIVE (NEGATIVE); PROTEIN,URINE 30 mg/dL (NEGATIVE); URINE SPECIFIC GRAVITY 1.024; UROBILINOGEN,URINE NEGATIVE mg/dL (<2.0)
--- NOTE | 2020-08-17 13:27 | RADIOLOGY REPORT (SQ) ---
EXAM DESCRIPTION: CT ABD/PELVIS WITH IV ORAL IMAGES COMPLETED DATE/TIME: 08/17/2020 1:03 pm REASON FOR STUDY: abd pain COMPARISON: Abdominal radiographs from 08/17/2020. TECHNIQUE: CT scan of the abdomen and pelvis performed using helical scanning technique with dynamic intravenous contrast injection. No oral contrast. Images reviewed with lung, soft tissue, and bone windows. Reconstructed coronal and sagittal MPR images reviewed. Delayed images for evaluation of the urinary system also acquired. All images stored on PACS. All CT scanners at this facility use dose modulation, iterative reconstruction, and/or weight based d osing when appropriate to reduce radiation dose to as low as reasonably achievable (ALARA). [facility]: Dose Right [facility]: CareDose [facility]: Dose Right [facility]: Teradose 4D [facility]: [employer] CONTRAST TYPE AND DOSE: Contrast/concentration: Isovue 350.00 mmol/ml; Total Contrast Delivered: 69. 9 ml; Total Saline Delivered: 65.0 ml RENAL FUNCTION: GFR > 60. RADIATION DOSE: CT Rad equipment meets quality standard of care and radiation dose reduction techniq ues were employed. CTDIvol: 5.0 - 6.7 mGy. DLP: 599 mGy-cm. LIMITATIONS: None. FINDINGS: LOWER CHEST: Cardiomegaly and hiatal hernia. LIVER: The morphology of the liver is noncirrhotic. The portal veins are patent. There is an questi onable nodule in the right perihepatic space (between the 10th and 11th ribs on image 24 of series 3) that could represent an exophytic hepatic mass. SPLEEN: No splenomegaly or splenic mass. PANCREAS: No acute gross abnormality of the pancreas GALLBLADDER: No acute gross abnormality of the gallbladder. ADRENAL GLANDS: No mass or asymmetry. RIGHT KIDNEY AND URETER: No solid mass, hydronephrosis, nephrolithiasis, hydroureter or ureterolithi asis. LEFT KIDNEY AND URETER: No solid mass, hydronephrosis, nephrolithiasis, hydroureter or ureterolithia sis. AORTA AND VESSELS: No aneurysm or dissection of the abdominal aorta. RETROPERITONEUM: No retroperitoneal adenopathy, hemorrhage or mass. BOWEL AND PERITONEAL CAVITY: Abnormal position of the distended cecum in the left upper quadrant. Th e appendix is dilated (it measures 11 mm) and there is associated stranding of the periappendiceal fa t. There is no extraluminal abscess, obstruction, pneumatosis or free intraperitoneal gas. APPENDIX: See above. PELVIS: The uterus is surgically absent. There is no abnormality of the adnexa that is apparent on C T. The urinary bladder is normal in appearance. ABDOMINAL WALL: Sacral stimulator. BONES: Degenerative spondylosis and facet joint arthropathy of the lumbar spine. There is no acute f racture. OTHER: No other finding. IMPRESSION: 1. Findings as detailed above consistent with an acute appendicitis. There is no periap pendiceal abscess. 2. Abnormal position of the distended cecum in the left upper quadrant - consider surgical evaluatio n for a cecal volvulus. 3. Questionable nodule in the right perihepatic space (between the 10th and 11th ribs on image 24 of series 3) that could represent an exophytic hepatic mass. Consider further evaluation with a nonemer gent ultrasound. TECHNICAL DOCUMENTATION: JOB ID: [id number] Quality ID # [id number]: Final reports with documentation of one or more dose reduction techniques (e.g., Au tomated exposure control, adjustment of the mA and/or kV according to patient size, use of iterative reconstruction technique) 2010 [employer]- All Rights Reserved Reading location - IP/workstation name: [email or web address]
[2020-08-17] MEDS ORDERED: PIPERACILLIN/TAZOBACTAM 3.375 GM VIAL IV ONE (13:32)
--- NOTE | 2020-08-17 14:19 | PDOC H&P ---
History of Present Illness Admission Date/PCP: BEAU AUSTIN MD Patient complains of: Abdominal pains History of Present Illness: NAHOMY COLLINS is a 79 year old female who started complaining of abdominal pains more around the umbilical area yesterday afternoon associated with some anorexia and constipation. Denies any nausea vomiting fever chills. She had a CT scan of the abdomen in the ED today which showed acute appendicitis with possible cecal volvulus with the cecum in the left upper quadrant. Past Medical History Cardiac Medical History: Reports: Hyperlipidema, Hypertension - MEDICATION Denies: Myocardial Infarction Pulmonary Medical History: Reports: Asthma - CHILDHOOD Neurological Medical History: Denies: Seizures GI Medical History: Reports: Hiatal Hernia - had repair Denies: Hepatitis Psychiatric Medical History: Reports: Depression Hematology: Denies: Anemia, Sickle Cell Disease Past Surgical History Past Surgical History: Reports: Hysterectomy, Mastectomy - right/RESTRICTED RIGHT ARM Denies: Amputation, Pacemaker Social History Lives with: Family Smoking Status: Never Smoker Electronic Cigarette use?: No Family History Family History: Reviewed & Not Pertinent Parental Family History Reviewed: Yes Children Family History Reviewed: No Sibling(s) Family History Reviewed.: Yes - Brother with diabetes Medication/Allergy Home Medications: Amlodipine Besylate [Norvasc 10 mg Tablet] 10 mg PO DAILY 06/10/12 Atorvastatin Calcium [Lipitor 20 mg Tablet] 20 mg PO DAILY 06/10/12 Gabapentin [Neurontin 300 mg Capsule] 300 mg PO TID 12/19/12 Aripiprazole 10 mg PO DAILY 08/17/20 Bupropion HCl [Bupropion Xl] 300 mg PO DAILY 08/17/20 Montelukast Sodium [Singulair 10 mg Tablet] 10 mg PO QHS 08/17/20 Oxybutynin Chloride [Ditropan 5 Mg Tablet] 5 mg PO DAILY 08/17/20 Allergies/Adverse Reactions: No Known Allergies Allergy (Unverified 06/10/12 12:40) Review of Systems Constitutional: PRESENT: as per HPI Gastrointestinal: PRESENT: abdominal pain, constipation Physical Exam Vital Signs: Temp Pulse Resp BP Pulse Ox 98.0 F 112 H 18 125/68 95 08/17/20 08:31 08/17/20 08:31 08/17/20 08:31 08/17/20 08:31 08/17/20 08:31 Intake & Output 1208/17/20 08/18/20 06:59 06:59 06:59 Weight 61.235 kg General appearance: PRESENT: mild distress Head exam: PRESENT: atraumatic Eye exam: PRESENT: conjunctiva pink Mouth exam: PRESENT: moist Neck exam: PRESENT: full ROM Respiratory exam: PRESENT: clear to auscultation thu Cardiovascular exam: PRESENT: RRR Pulses: PRESENT: normal radial pulses Vascular exam: PRESENT: normal capillary refill GI/Abdominal exam: PRESENT: soft, tenderness - Mild to moderate diffuse tenderness. Primarily tender around the periumbilical area. Rectal exam: PRESENT: deferred Extremities exam: PRESENT: full ROM Neurological exam: PRESENT: alert, oriented to person, oriented to place, oriented to time, oriented to situation Psychiatric exam: PRESENT: appropriate affect Skin exam: PRESENT: normal color, warm Results Laboratory Results: 08/17/20 08:56 08/17/20 08:56 08/17/20 08/17/20 08/17/20 08:56 08:56 10:08 WBC 10.8 H RBC 5.08 Hgb 15.5 Hct 46.9 MCV 92 MCH 30.5 MCHC 33.0 RDW 13.9 Plt Count 195 Seg Neutrophils % 89.5 H Sodium 140.8 Potassium 3.3 L Chloride 100 Carbon Dioxide 30 Anion Gap 11 BUN 16 Creatinine 0.60 Est GFR ( Amer) > 60 Glucose 147 H Lactic Acid 1.7 Calcium 9.9 Total Bilirubin 1.4 H AST 37 H Alkaline Phosphatase 82 Total Protein 7.8 Albumin 4.7 Lipase 19.3 L Urine Color Urine Appearance Urine pH Ur Specific [place] Urine Protein Urine Glucose (UA) Urine Ketones Urine Blood Urine Nitrite Ur Leukocyte Esterase Urine WBC (Auto) Urine RBC (Auto) 08/17/20 10:08 WBC RBC Hgb Hct MCV MCH MCHC RDW Plt Count Seg Neutrophils % Sodium Potassium Chloride Carbon Dioxide Anion Gap BUN Creatinine Est GFR ( Amer) Glucose Lactic Acid Calcium Total Bilirubin AST Alkaline Phosphatase Total Protein Albumin Lipase Urine Color YELLOW Urine Appearance SLIGHTLY-CLOUDY Urine pH 5.0 Ur Specific [place] 1.024 Urine Protein 30 H Urine Glucose (UA) NEGATIVE Urine Ketones 80 H Urine Blood SMALL H Urine Nitrite NEGATIVE Ur Leukocyte Esterase TRACE H Urine WBC (Auto) 1 Urine RBC (Auto) 1 08/17/20 08:56 Troponin I < 0.012 Impressions: Acute Abdomen Series 08/17/20 09:15 IMPRESSION: 1. Cardiomegaly without a superimposed acute cardiopulmonary process. 2. Cluster of air-filled dilated loops of bowel in the left upper quadrant. Correlation with a CT is recommended to exclude a mechanical obstruction. Abdomen/Pelvis CT 08/17/20 12:00 IMPRESSION: 1. Findings as detailed above consistent with an acute appendicitis. There is no periappendiceal abscess. 2. Abnormal position of the distended cecum in the left upper quadrant - consider surgical evaluation for a cecal volvulus. 3. Questionable nodule in the right perihepatic space (between the 10th and 11th ribs on image 24 of series 3) that could represent an exophytic hepatic mass. Consider further evaluation with a nonemergent ultrasound. Assessment & Plan - Diagnosis (1) Acute appendicitis Is this a current diagnosis for this admission?: Yes (2) Cecal volvulus Is this a current diagnosis for this admission?: Yes - Time Time Spent: 30 to 50 Minutes Anticipated Discharge Disposition: Home, Self Care Anticipated Discharge Timeframe: 1 week - Inpatient Certification Medical Necessity: Need For IV Fluids, Need for IV Antibiotics, Need for Surgery - Plan Summary Plan Summary: 79-year-old female noted abdominal pains yesterday afternoon with some anorexia and constipation. Denies any fever, chills, nausea nor vomiting. CT scan of the abdomen in the ED showed acute appendicitis with sickle dilated in the left upper quadrant suspicious for cecal volvulus. She has diffuse mild to moderate abdominal tenderness. Start IV antibiotics, rapid Covid testing, For possible exploratory laparotomy, open appendectomy and right hemicolectomy
[2020-08-17] MEDS: POTASSI CL 20 MEQ/50 ML RIDER 20 MEQ/50 ML RTUPB IV SCH ×2 (14:48→16:38)
[2020-08-17] MEDS ORDERED: ROCURONIUM BROMIDE INJ 50 MG/5 ML VIAL IV ONE (14:53)
[2020-08-17] MEDS ORDERED: SUCCINYLCHOLINE CHLORIDE INJ 200 MG/10 ML VIAL ONE (14:53)
[2020-08-17] MEDS ORDERED: GLUCAGON,HUMAN RECOMB 1 MG INJ SUBCUT PRN (15:43)
[2020-08-17] MEDS ORDERED: DEXTROSE 40% GEL 15 GM TUBE PO PRN ×2 (15:43)
[2020-08-17] MEDS ORDERED: DEXTROSE 50%-WATER 25 GM/50 ML DISP.SYRIN IV PRN ×2 (15:43)
[2020-08-17] MEDS: PANTOPRAZOLE SODIUM 40 MG VIAL IV SCH (16:38)
--- NOTE | 2020-08-17 17:05 | EKG REPORT ---
SEVERITY:- OTHERWISE NORMAL ECG - SINUS TACHYCARDIA : Confirmed by: Jorge A Gomez MD 17-Aug-2020 17:04:49
[2020-08-17] MEDS ORDERED: ONDANSETRON HCL INJ/PF 4 MG/2 ML SDV ONE (17:51)
[2020-08-17] MEDS ORDERED: DEXAMETHASONE SOD PHOSPHATE INJ 4 MG/1 ML VIAL ONE (17:51)
[2020-08-17] MEDS ORDERED: MIDAZOLAM 2 MG/2 ML INJ ONE (17:51)
[2020-08-17] MEDS ORDERED: FENTANYL CITRATE INJ/PF 100 MCG/2 ML AMPUL ONE ×3 (17:51→21:44)
[2020-08-17] MEDS ORDERED: PROPOFOL INJ 200 MG/20 ML VIAL IV ONE (17:52)
[2020-08-17] MEDS ORDERED: SUGAMMADEX SODIUM 200 MG/2 ML SDV IV ONE (17:52)
[2020-08-17] MEDS ORDERED: EPHEDRINE SULFATE INJ 50 MG/1 ML AMPULE ONE (17:53)
[2020-08-17] MEDS ORDERED: PIPERACILLIN/TAZOBACTAM 3.375 GM VIAL IV SCH (18:00)
[2020-08-17] MEDS ORDERED: ROPIVACAINE HCL 0.5% INJ/PF (5 MG/1 ML) 30 ML SDV ONE ×2 (18:44)
[2020-08-17] MEDS ORDERED: MORPHINE SULFATE 10 MG/ML INJ IV PRN (20:18)
[2020-08-17] MEDS ORDERED: PROMETHAZINE HCL INJ 25 MG/1 ML VIAL IV PRN ×2 (20:18)
[2020-08-17] MEDS ORDERED: DIPHENHYDRAMINE HCL 50 MG/ML VIAL IV PRN (20:18)
[2020-08-17] MEDS ORDERED: FENTANYL CITRATE INJ/PF 100 MCG/2 ML AMPUL IV PRN ×3 (20:18)
[2020-08-17] MEDS ORDERED: OXYCODONE-ACETAMINOPHEN 5-325 MG TABLET PO PRN ×2 (20:18)
[2020-08-17] MEDS ORDERED: MEPERIDINE HCL/PF INJ 25 MG/1 ML DISP.SYRIN IV PRN (20:18)
[2020-08-17] MEDS ORDERED: ONDANSETRON HCL INJ/PF 4 MG/2 ML SDV IV PRN (20:18)
[2020-08-17] MEDS ORDERED: MORPHINE SULFATE 10 MG/ML INJ ONE (21:44)
--- NOTE | 2020-08-17 22:25 | Operative Report ---
Operative Report DATE OF SURGERY: 08/17/20 PREOPERATIVE DIAGNOSIS: Acute appendicitis. Cecal volvulus POSTOPERATIVE DIAGNOSIS: Same OPERATION: Exploratory laparotomy, cecal resection and appendectomy with ileal ascending colostomy SURGEON: LINDA ACEVES ANESTHESIA: GA TISSUE REMOVED OR ALTERED: Cecum and appendix COMPLICATIONS: None ESTIMATED BLOOD LOSS: 50 cc QUANTITATIVE BLOOD LOSS: 50 INTRAOPERATIVE FINDINGS: Acute appendicitis with cecum was partially twisted in the left upper quadrant area. Cecum however appears viable. Cecum is in the left upper quadrant from a relatively long mesentery. PROCEDURE: After adequate general anesthesia and abdominal wall muscle block, patient was placed in supine position and the abdomen prepped and draped in the usual sterile fashion. Appropriate timeout was then called. Next a midline incision was then made at the mid epigastric area extended to just below the umbilicus. The abdominal cavity was then entered and the abdomen explored. The appendix noted to be inflamed and cecum was distended and partially twisted in the left upper quadrant area. The small bowel was run and no evidence of obstruction noted between the ileocecal valve and the ligament of Treitz. Large bowel appears to be intact and is mildly distended. Stomach was distended. An NG tube was later placed by anesthesia and eventually decompress the stomach. The ascending colon was then mobilized by dividing the attachment to the lateral gutter with the use of LigaSure. The ileum was then divided with an Endo DIAMANTE about 6 cm from the ileocecal valve. The cecum was then divided with the use of 75 cm DIAMANTE stapler with blue load. The mesentery was then divided close to the cecum and underneath the appendix and the small bowel with the use of LigaSure. The the ascending colon and distal ileum was then anastomose in a functional [id number] using 75 cm DIAMANTE stapler. The defect opening was then closed with a TA 55 blue blue load. There was good viability of the anastomotic site an adequate opening between the large and small bowel. The defect in the mesentery was then closed with interrupted sutures using 3-0 Vicryl sutures. The abdominal cavity was then irrigated copiously with at least 5 L of saline. The fascia was then closed with running suture using #1 PDS started at both ends and the tied together just above the umbilicus. Subcu was then irrigated with saline solution and the skin closed with jyothi. Sterile dressings placed over the operative site. Needle instrument sponge count were all correct. Patient brought to recovery room in extubated in satisfactory condition.
[2020-08-17] MEDS: MORPHINE SULFATE 10 MG/ML INJ IV PRN (23:09)
[2020-08-17] MEDS: DEXTROSE 5%-LACTATED RINGERS 1,000 ML IV PRN (23:11)
[2020-08-17] MEDS: PIPERACILLIN SODIUM/TAZOBACTAM 3.375 GM in NORMAL SALINE 100 ML IV SCH (23:11)
[2020-08-18] MEDS: PIPERACILLIN SODIUM/TAZOBACTAM 3.375 GM in NORMAL SALINE 100 ML IV SCH ×4 (03:34→18:34)
[2020-08-18] MEDS: MORPHINE SULFATE 10 MG/ML INJ IV PRN ×3 (03:35→19:27)
[2020-08-18] MEDS: PANTOPRAZOLE SODIUM 40 MG VIAL IV SCH ×2 (05:50→18:34)
[2020-08-18 06:27] LABS: ALBUMIN 2.6 g/dL (3.5-5.0); ALKALINE PHOSPHATASE 49 U/L (38-126); ASPARTATE AMINO TRANSFERASE 24 U/L (14-36); BILIRUBIN,DIRECT 0.1 mg/dL (0.0-0.4); BILIRUBIN,TOTAL 0.9 mg/dL (0.2-1.3); BLOOD UREA NITROGEN 9 mg/dL (7-20); CALCIUM 8.4 mg/dL (8.4-10.2); GLUCOSE 168 mg/dL (75-110); POTASSIUM 3.4 mmol/L (3.6-5.0); TOTAL PROTEIN 4.8 g/dL (6.3-8.2)
[2020-08-18 06:29] LABS: ABSOLUTE LYMPHOCYTES (AUTO) 0.4 10^3/uL (0.5-4.7); ABSOLUTE MONOCYTES (AUTO) 0.2 10^3/uL (0.1-1.4); ABSOLUTE NEUT (AUTO) 6.4 10^3/uL (1.7-8.2); EOSINOPHILS % (AUTO) 0.1 % (0-6); HEMATOCRIT 34.6 % (36.0-47.0); LYMPHOCYTES % (AUTO) 5.3 % (13-45); MEAN CORPUSCULAR HEMOGLOBIN 31.2 pg (27.0-33.4); MEAN CORPUSCULAR HGB CONC 34.4 g/dL (32.0-36.0); MEAN CORPUSCULAR VOLUME 91 fl (80-97); MONOCYTES % (AUTO) 3.2 % (3-13); PLATELET COUNT 130 10^3/uL (150-450); RED BLOOD COUNT 3.82 10^6/uL (3.72-5.28); RED CELL DISTRIBUTION WIDTH 13.3 % (11.5-14.0); SEGMENTED NEUTROPHILS % (AUTO) 91.4 % (42-78); TOTAL CELLS COUNTED % (AUTO) 100 %
[2020-08-18 06:30] LABS: HEMOGLOBIN 11.9 g/dL (12.0-15.5)
[2020-08-18 06:32] LABS: CARBON DIOXIDE 29 mmol/L (22-30); CHLORIDE 107 mmol/L (98-107)
[2020-08-18 06:35] LABS: ANION GAP 3 (5-19)
--- NOTE | 2020-08-18 08:16 | PDOC PROGRESS REPORT ---
Subjective Date:: 08/18/20 Subjective:: Now has incisional pain centered on the right lower quadrant area. NG tube drai iván small amount of cloudy light brownish fluid. Reason For Visit: ACUTE APPENDICITIS,CECAL VOLVULUS Physical Exam Vital Signs: Temp Pulse Resp BP Pulse Ox 98.1 F 88 18 115/60 98 08/17/20 23:20 08/17/20 23:20 08/17/20 23:20 08/17/20 23:20 08/17/20 23:20 Intake & Output 08/17/20 08/18/20 08/19/20 06:59 06:59 06:59 Intake Total 4018 Output Total 1225 Balance 2793 Weight 61.4 kg Exam: Abdomen is soft with mild tenderness on the incision and on the right lower quadrant. The incision site looks clean and dry. NG tube in place. Results Laboratory Results: 08/18/20 05:36 08/18/20 05:36 08/17/20 08/17/20 08/17/20 08:56 08:56 10:08 WBC 10.8 H RBC 5.08 Hgb 15.5 Hct 46.9 MCV 92 MCH 30.5 MCHC 33.0 RDW 13.9 Plt Count 195 Seg Neutrophils % 89.5 H Sodium 140.8 Potassium 3.3 L Chloride 100 Carbon Dioxide 30 Anion Gap 11 BUN 16 Creatinine 0.60 Est GFR ( Amer) > 60 Glucose 147 H Lactic Acid 1.7 Calcium 9.9 Total Bilirubin 1.4 H AST 37 H Alkaline Phosphatase 82 Total Protein 7.8 Albumin 4.7 Lipase 19.3 L Urine Color Urine Appearance Urine pH Ur Specific [place] Urine Protein Urine Glucose (UA) Urine Ketones Urine Blood Urine Nitrite Ur Leukocyte Esterase Urine WBC (Auto) Urine RBC (Auto) 08/17/20 08/18/20 08/18/20 10:08 05:36 05:36 WBC 7.0 RBC 3.82 Hgb 11.9 L D Hct 34.6 L MCV 91 MCH 31.2 MCHC 34.4 RDW 13.3 Plt Count 130 L Seg Neutrophils % 91.4 H Sodium 139.3 Potassium 3.4 L Chloride 107 Carbon Dioxide 29 Anion Gap 3 L BUN 9 Creatinine 0.50 L Est GFR ( Amer) > 60 Glucose 168 H Lactic Acid Calcium 8.4 Total Bilirubin 0.9 AST 24 Alkaline Phosphatase 49 Total Protein 4.8 L Albumin 2.6 L Lipase Urine Color YELLOW Urine Appearance SLIGHTLY-CLOUDY Urine pH 5.0 Ur Specific [place] 1.024 Urine Protein 30 H Urine Glucose (UA) NEGATIVE Urine Ketones 80 H Urine Blood SMALL H Urine Nitrite NEGATIVE Ur Leukocyte Esterase TRACE H Urine WBC (Auto) 1 Urine RBC (Auto) 1 08/17/20 08:56 Troponin I < 0.012 Impressions: Acute Abdomen Series 08/17/20 09:15 IMPRESSION: 1. Cardiomegaly without a superimposed acute cardiopulmonary process. 2. Cluster of air-filled dilated loops of bowel in the left upper quadrant. Correlation with a CT is recommended to exclude a mechanical obstruction. Abdomen/Pelvis CT 08/17/20 12:00 IMPRESSION: 1. Findings as detailed above consistent with an acute appendicitis. There is no periappendiceal abscess. 2. Abnormal position of the distended cecum in the left upper quadrant - consider surgical evaluation for a cecal volvulus. 3. Questionable nodule in the right perihepatic space (between the 10th and 11th ribs on image 24 of series 3) that could represent an exophytic hepatic mass. Consider further evaluation with a nonemergent ultrasound. Assessment & Plan - Diagnosis (1) Acute appendicitis Is this a current diagnosis for this admission?: Yes (2) Cecal volvulus Is this a current diagnosis for this admission?: Yes - Time Anticipated Discharge Disposition: Home, Self Care Anticipated Discharge Timeframe: 5 days Critical Time spent with patient: 15-24 minutes - Inpatient Certification Medical Necessity: Need For IV Fluids, Need for Pain Control, Need for IV Antibi otics - Plan Summary Plan Summary: 79-year-old female postop day 1 post resection of cecum and acute appendix with ileal ascending colon anastomosis. Patient remained stable afebrile. Hemoglobin decreased around 11.9 from 15 preop. White count is normal. Plans: Continue NG tube Okay to have ice chips Continue hydration and replace potassium Continue IV antibiotics Start DVT prophylaxis Lovenox
[2020-08-18] MEDS: DEXTROSE 5%-LACTATED RINGERS 1,000 ML IV PRN ×2 (09:15→22:27)
[2020-08-18] MEDS ORDERED: POTASSI CL 20 MEQ/50 ML RIDER 20 MEQ/50 ML RTUPB IV ONE (09:30)
[2020-08-18] MEDS ORDERED: FAMOTIDINE INJ/PF 20 MG/2 ML SDV IV SCH (10:00)
[2020-08-18] MEDS: HEPARIN SOD (PORCINE) 5,000 UNIT/ML 1 ML VIAL SUBCUT SCH ×2 (11:11→22:26)
[2020-08-19] MEDS: PIPERACILLIN SODIUM/TAZOBACTAM 3.375 GM in NORMAL SALINE 100 ML IV SCH ×5 (01:06→23:30)
[2020-08-19] MEDS: PANTOPRAZOLE SODIUM 40 MG VIAL IV SCH ×2 (05:38→17:23)
[2020-08-19] MEDS: MORPHINE SULFATE 10 MG/ML INJ IV PRN ×3 (08:49→22:24)
[2020-08-19] MEDS: DEXTROSE 5%-LACTATED RINGERS 1,000 ML IV PRN ×2 (08:50→18:47)
[2020-08-19] MEDS: HEPARIN SOD (PORCINE) 5,000 UNIT/ML 1 ML VIAL SUBCUT SCH ×2 (11:00→22:24)
--- NOTE | 2020-08-19 15:07 | PDOC PROGRESS REPORT ---
Subjective Date:: 08/19/20 Subjective:: No flatus yet. Still with the some incisional pains. Reason For Visit: ACUTE APPENDICITIS,CECAL VOLVULUS Physical Exam Vital Signs: Temp Pulse Resp BP Pulse Ox 98.9 F 59 L 16 107/61 97 08/19/20 11:44 08/19/20 11:44 08/19/20 11:44 08/19/20 11:44 08/19/20 11:44 Intake & Output 08/18/20 08/19/20 08/20/20 06:59 06:59 06:59 Intake Total 4018 2100 1000 Output Total 1225 250 Balance 2793 1850 1000 Weight 61.4 kg 64.7 kg Exam: Afebrile, abdomen is soft not distended. NG tube about 200 cc of brownish fluid. No calf tenderness Results Laboratory Results: 08/18/20 05:36 08/18/20 05:36 08/17/20 08:56 Troponin I < 0.012 Impressions: Acute Abdomen Series 08/17/20 09:15 IMPRESSION: 1. Cardiomegaly without a superimposed acute cardiopulmonary process. 2. Cluster of air-filled dilated loops of bowel in the left upper quadrant. Correlation with a CT is recommended to exclude a mechanical obstruction. Abdomen/Pelvis CT 08/17/20 12:00 IMPRESSION: 1. Findings as detailed above consistent with an acute append icitis. There is no periappendiceal abscess. 2. Abnormal position of the distended cecum in the left upper quadrant - consider surgical evaluation for a cecal volvulus. 3. Questionable nodule in the right perihepatic space (between the 10th and 11th ribs on image 24 of series 3) that could represent an exophytic hepatic mass. Consider further evaluation with a nonemergent ultrasound. Assessment & Plan - Diagnosis (1) Acute appendicitis Is this a current diagnosis for this admission?: Yes (2) Cecal volvulus Is this a current diagnosis for this admission?: Yes - Time Anticipated Discharge Disposition: Home, Self Care Anticipated Discharge Timeframe: within 72 hours Critical Time spent with patient: 15-24 minutes - Inpatient Certification Medical Necessity: Need For IV Fluids, Need for Pain Control, Need for IV Antibiotics - Plan Summary Plan Summary: 79-year-old female second day post cecectomy and appendectomy with primary ileal ascending colon Anastomosis remains stable. Plans: Continue NG tube for now. Continue IV antibiotics. Recheck electrolytes and CBC
[2020-08-20] MEDS: PANTOPRAZOLE SODIUM 40 MG VIAL IV SCH ×2 (05:15→18:07)
[2020-08-20] MEDS: PIPERACILLIN SODIUM/TAZOBACTAM 3.375 GM in NORMAL SALINE 100 ML IV SCH ×4 (05:15→23:29)
[2020-08-20] MEDS: DEXTROSE 5%-LACTATED RINGERS 1,000 ML IV PRN ×2 (05:15→18:07)
[2020-08-20] MEDS: HEPARIN SOD (PORCINE) 5,000 UNIT/ML 1 ML VIAL SUBCUT SCH ×2 (10:26→21:04)
[2020-08-20] MEDS ORDERED: KETOROLAC TROMETHAMINE INJ/PF 30 MG/1 ML SDV IV PRN (11:25)
--- NOTE | 2020-08-20 11:28 | PDOC PROGRESS REPORT ---
Subjective Date:: 08/20/20 Reason For Visit: ACUTE APPENDICITIS,CECAL VOLVULUS Patient laying in bed, wanting narcotics; has not been up in 24 hours. Grace cath and NG tube still in. Intravenous antibiotics continue. Physical Exam Vital Signs: Temp Pulse Resp BP Pulse Ox 98.7 F 59 L 19 96/41 L 95 08/20/20 07:43 08/20/20 04:06 08/20/20 04:06 08/20/20 04:06 08/20/20 04:06 Intake & Output 08/19/20 08/20/20 08/21/20 06:59 06:59 06:59 Intake Total 2100 2995 Output Total 250 1350 150 Balance 1850 1645 -150 Weight 64.7 kg 66.2 kg General appearance: PRESENT: no acute distress GI/Abdominal exam: PRESENT: other - Abdomen soft, appropriate tender. Dressing removed, and all jyothi in position. No dressing reapplied. Results Laboratory Results: 08/18/20 05:36 08/18/20 05:36 08/17/20 08:56 Troponin I < 0.012 Impressions: Acute Abdomen Series 08/17/20 09:15 IMPRESSION: 1. Cardiomegaly without a superimposed acute cardiopulmonary process. 2. Cluster of air-filled dilated loops of bowel in the left upper quadrant. Correlation with a CT is recommended to exclude a mechanical obstruction. Abdomen/Pelvis CT 08/17/20 12:00 IMPRESSION: 1. Findings as detailed above consistent with an acute appendicitis. There is no periappendiceal abscess. 2. Abnormal position of the distended cecum in the left upper quadrant - consider surgical evaluation for a cecal volvulus. 3. Questionable nodule in the right perihepatic space (between the 10th and 11th ribs on image 24 of series 3) that could represent an exophytic hepatic mass. Consider further evaluation with a nonemergent ultrasound. Assessment & Plan - Diagnosis (1) Acute appendicitis Is this a current diagnosis for this admission?: Yes Plan: Impression: Patient is 3 days status post exploratory laparotomy, CK ectomy, with stapled ileal colonic anastomosis, doing well, slow to move, evidence of sepsis. Recommendations: 1. We will hold narcotics, utilize IV Toradol and IV acetaminophen instead 2. We will discontinue Grace catheter; clamp NG tube and likely remove later today 3. Discontinue IV antibiotics. 4. We will get patient up and ambulating with her walker which she was using preoperatively. (2) Cecal volvulus Is this a current diagnosis for this admission?: Yes (3) Hypokalemia Is this a current diagnosis for this admission?: Yes - Time Anticipated Discharge Disposition: Home, Self Care Anticipated Discharge Timeframe: within 72 hours
[2020-08-20] MEDS: ACETAMINOPHEN INJ/PF 1000 MG/100 ML SDV IV SCH ×2 (12:30→17:08)
[2020-08-21] MEDS: ACETAMINOPHEN INJ/PF 1000 MG/100 ML SDV IV SCH ×4 (00:12→17:44)
[2020-08-21] MEDS: PANTOPRAZOLE SODIUM 40 MG VIAL IV SCH ×2 (05:57→17:44)
[2020-08-21] MEDS: PIPERACILLIN SODIUM/TAZOBACTAM 3.375 GM in NORMAL SALINE 100 ML IV SCH ×3 (06:34→17:44)
--- NOTE | 2020-08-21 08:22 | PDOC PROGRESS REPORT ---
Subjective Date:: 08/21/20 Subjective:: Has flatus. Hungry. Reason For Visit: ACUTE APPENDICITIS,CECAL VOLVULUS Physical Exam Vital Signs: Temp Pulse Resp BP Pulse Ox 97.5 F 58 L 18 109/51 L 92 08/21/20 00:45 08/21/20 00:45 08/21/20 00:45 08/21/20 00:45 08/21/20 00:45 Intake & Output 08/20/20 08/21/20 08/22/20 06:59 06:59 06:59 Intake Total 2995 1000 Output Total 1350 950 Balance 1645 50 Weight 66.2 kg 67.9 kg Exam: Abdomen soft, minimal tenderness around incision.Incision looks clean and dry. Results Laboratory Results: 08/18/20 05:36 08/18/20 05:36 08/17/20 08:56 Troponin I < 0.012 Impressions: Acute Abdomen Series 08/17/20 09:15 IMPRESSION: 1. Cardiomegaly without a superimposed acute cardiopulmonary process. 2. Cluster of air-filled dilated loops of bowel in the left upper quadrant. Correlation with a CT is recommended to exclude a mechanical obstruction. Abdomen/Pelvis CT 08/17/20 12:00 IMPRESSION: 1. Findings as detailed above consistent with an acute appendicitis. There is no periappendiceal abscess. 2. Abnormal position of the distended cecum in the left upper quadrant - consider surgical evaluation for a cecal volvulus. 3. Questionable nodule in the right perihepatic space (between the 10th and 11th ribs on image 24 of series 3) that could represent an exophytic hepatic mass. Consider further evaluation with a nonemergent ultrasound. Assessment & Plan - Diagnosis (1) Acute appendicitis Is this a current diagnosis for this admission?: Yes (2) Cecal volvulus Is this a current diagnosis for this admission?: Yes - Time Anticipated Discharge Disposition: Home with Home Health Anticipated Discharge Timeframe: within 48 hours - Inpatient Certification Medical Necessity: Need For IV Fluids, Risk of Complication if Not Cared For in Hospital - Plan Summary Plan Summary: 79 yo female POD #4 post cecectomy,appendectomy for acute appendicitis and cecal volvulus. Has passed flatus and feels better. Start clears and advance diet as tolerated. Off IV antibiotics. Ambulate Anticipate discharge in 48 hrs.
[2020-08-21] MEDS: HEPARIN SOD (PORCINE) 5,000 UNIT/ML 1 ML VIAL SUBCUT SCH ×2 (09:54→22:00)
[2020-08-22] MEDS: ACETAMINOPHEN INJ/PF 1000 MG/100 ML SDV IV SCH ×2 (00:24→05:24)
[2020-08-22] MEDS: DEXTROSE 5%-LACTATED RINGERS 1,000 ML IV PRN (00:24)
[2020-08-22] MEDS: PIPERACILLIN SODIUM/TAZOBACTAM 3.375 GM in NORMAL SALINE 100 ML IV SCH ×2 (00:58→05:53)
[2020-08-22] MEDS: PANTOPRAZOLE SODIUM 40 MG VIAL IV SCH (05:24)
--- NOTE | 2020-08-22 08:35 | PDOC DISCHARGE SUMMARY ---
General - Admit/Disc Date/PCP Admission Date/Primary Care Provider: 08/17/20 14:23 BEAU AUSTIN MD Discharge Date: 08/22/20 - Discharge Diagnosis Final Diagnosis: appendicitis - Assessment Summary: Patient was admitted on 08/17/2020 with acute appendicitis she was taken to the operating room where she underwent a partial cecectomy and appendectomy postoperatively she had a routine benign postop course She is started on a regular diet which she tolerated well her wound is clean and dry and she is ready for discharge home today on 08/22/2020. She has been given instructions on caring for her wound which is closed with jyothi. She will be given a follow-up appointment in 7 to 10 days in surgical clinic. She does not require or want pain pain medication at the time of discharge she will use Tylenol. She will resume her own meds when she gets home. - Additional Information Resuscitation Status: Full Code Discharge Diet: As Tolerated Discharge Activity: Activity As Tolerated, No Lifting Over 10 Pounds Referrals: JOANNE TORRES MD [ACTIVE STAFF] - 09/04/20 11:00 am Home Medications: Amlodipine Besylate [Norvasc 10 mg Tablet] 10 mg PO DAILY 06/10/12 Atorvastatin Calcium [Lipitor 20 mg Tablet] 20 mg PO DAILY 06/10/12 Gabapentin [Neurontin 300 mg Capsule] 300 mg PO TID 12/19/12 Aripiprazole 10 mg PO DAILY 08/17/20 Bupropion HCl [Bupropion Xl] 300 mg PO DAILY 08/17/20 Montelukast Sodium [Singulair 10 mg Tablet] 10 mg PO QHS 08/17/20 Oxybutynin Chloride [Ditropan 5 Mg Tablet] 5 mg PO DAILY 08/17/20 History of Present Illiness History of Present Illness: NAHOMY COLLINS is a 79 year old female Physical Exam Vital Signs: Temp Pulse Resp BP Pulse Ox 98.8 F 61 16 132/70 H 94 08/22/20 08:01 08/22/20 07:49 08/22/20 07:49 08/22/20 07:49 08/22/20 07:49 Intake & Output 08/21/20 08/22/20 08/23/20 06:59 06:59 06:59 Intake Total 2000 450 Output Total 950 Balance 1050 450 Weight 67.9 kg 68.2 kg Results Laboratory Results: WBC 7.0 10^3/uL (4.0-10.5) 08/18/20 05:36 RBC 3.82 10^6/uL (3.72-5.28) 08/18/20 05:36 Hgb 11.9 g/dL (12.0-15.5) L D 08/18/20 05:36 Hct 34.6 % (36.0-47.0) L 08/18/20 05:36 MCV 91 fl (80-97) 08/18/20 05:36 MCH 31.2 pg (27.0-33.4) 08/18/20 05:36 MCHC 34.4 g/dL (32.0-36.0) 08/18/20 05:36 RDW 13.3 % (11.5-14.0) 08/18/20 05:36 Plt Count 130 10^3/uL (150-450) L 08/18/20 05:36 Lymph % (Auto) 5.3 % (13-45) L 08/18/20 05:36 Holt % (Auto) 3.2 % (3-13) 08/18/20 05:36 Eos % (Auto) 0.1 % (0-6) 08/18/20 05:36 Baso % (Auto) 0.0 % (0-2) 08/18/20 05:36 Absolute Neuts (auto) 6.4 10^3/uL (1.7-8.2) 08/18/20 05:36 Absolute Lymphs (auto) 0.4 10^3/uL (0.5-4.7) L 08/18/20 05:36 Absolute Monos (auto) 0.2 10^3/uL (0.1-1.4) 08/18/20 05:36 Absolute Eos (auto) 0.0 10^3/uL (0.0-0.6) 08/18/20 05:36 Absolute Basos (auto) 0.0 10^3/uL (0.0-0.2) 08/18/20 05:36 Seg Neutrophils % 91.4 % (42-78) H 08/18/20 05:36 PT 14.6 SEC (11.4-15.4) 08/17/20 08:56 INR 1.12 08/17/20 08:56 APTT 30.9 SEC (23.5-35.8) 08/17/20 08:56 Sodium 139.3 mmol/L (137-145) 08/18/20 05:36 Potassium 3.4 mmol/L (3.6-5.0) L 08/18/20 05:36 Chloride 107 mmol/L (98-107) 08/18/20 05:36 Carbon Dioxide 29 mmol/L (22-30) 08/18/20 05:36 Anion Gap 3 (5-19) L 08/18/20 05:36 BUN 9 mg/dL (7-20) 08/18/20 05:36 Creatinine 0.50 mg/dL (0.52-1.25) L 08/18/20 05:36 Est GFR ( Amer) > 60 (>60) 08/18/20 05:36 Est GFR (MDRD) Non-Af > 60 (>60) 08/18/20 05:36 Glucose 168 mg/dL (75-110) H 08/18/20 05:36 Lactic Acid 1.7 mmol/L (0.7-2.1) 08/17/20 10:08 Calcium 8.4 mg/dL (8.4-10.2) 08/18/20 05:36 Total Bilirubin 0.9 mg/dL (0.2-1.3) 08/18/20 05:36 Direct Bilirubin 0.1 mg/dL (0.0-0.4) 08/18/20 05:36 Neonat Total Bilirubin Not Reportable 08/18/20 05:36 Neonat Direct Bilirubin Not Reportable 08/18/20 05:36 Neonat Indirect Bili Not Reportable 08/18/20 05:36 AST 24 U/L (14-36) 08/18/20 05:36 ALT 20 U/L (<35) 08/18/20 05:36 Alkaline Phosphatase 49 U/L (38-126) 08/18/20 05:36 Troponin I < 0.012 ng/mL 08/17/20 08:56 Total Protein 4.8 g/dL (6.3-8.2) L 08/18/20 05:36 Albumin 2.6 g/dL (3.5-5.0) L 08/18/20 05:36 Lipase 19.3 U/L (23-300) L 08/17/20 08:56 Urine Color YELLOW 08/17/20 10:08 Urine Appearance SLIGHTLY-CLOUDY 08/17/20 10:08 Urine pH 5.0 (5.0-9.0) 08/17/20 10:08 Ur Specific [place] 1.024 08/17/20 10:08 Urine Protein 30 mg/dL (NEGATIVE) H 08/17/20 10:08 Urine Glucose (UA) NEGATIVE mg/dL (NEGATIVE) 08/17/20 10:08 Urine Ketones 80 mg/dL (NEGATIVE) H 08/17/20 10:08 Urine Blood SMALL (NEGATIVE) H 08/17/20 10:08 Urine Nitrite NEGATIVE (NEGATIVE) 08/17/20 10:08 Urine Bilirubin NEGATIVE (NEGATIVE) 08/17/20 10:08 Urine Urobilinogen NEGATIVE mg/dL (<2.0) 08/17/20 10:08 Ur Leukocyte Esterase TRACE (NEGATIVE) H 08/17/20 10:08 Urine WBC (Auto) 1 /HPF 08/17/20 10:08 Urine RBC (Auto) 1 /HPF 08/17/20 10:08 Urine Bacteria (Auto) TRACE /HPF 08/17/20 10:08 Squamous Epi Cells Auto <1 /HPF 08/17/20 10:08 Urine Mucus (Auto) OCC /LPF 08/17/20 10:08 Urine Ascorbic Acid NEGATIVE (NEGATIVE) 08/17/20 10:08 Influenza A (RT-PCR) NEGATIVE (NEGATIVE) 08/17/20 14:15 Influenza B (RT-PCR) NEGATIVE (NEGATIVE) 08/17/20 14:15 RSV (RT-PCR) NEGATIVE (NEGATIVE) 08/17/20 14:15 SARS-CoV-2 Rap RNA(RT-PCR) NEGATIVE (NEGATIVE) 08/17/20 14:15 08/17/20 08:56 Troponin I < 0.012 Impressions: Acute Abdomen Series 08/17/20 09:15 IMPRESSION: 1. Cardiomegaly without a superimposed acute cardiopulmonary process. 2. Cluster of air-filled dilated loops of bowel in the left upper quadrant. Correlation with a CT is recommended to exclude a mechanical obstruction. Abdomen/Pelvis CT 08/17/20 12:00 IMPRESSION: 1. Findings as detailed above consistent with an acute appendicitis. There is no periappendiceal abscess. 2. Abnormal position of the distended cecum in the left upper quadrant - consider surgical evaluation for a cecal volvulus. 3. Questionable nodule in the right perihepatic space (between the 10th and 11th ribs on image 24 of series 3) that could represent an exophytic hepatic mass. C onsider further evaluation with a nonemergent ultrasound.
[2020-08-22 08:59] VITALS: BP 122/63
[2020-08-22] MEDS: HEPARIN SOD (PORCINE) 5,000 UNIT/ML 1 ML VIAL SUBCUT SCH (09:15)
== END 2020-08-22 09:44 | disposition home health service (06) | DRG 329 ==
LOC: ER 08:25 → EH 14:23 → 4S 17:21
PROVIDERS: ADMIT Surgery; ATTEND Surgery
PROC: 0DTH0ZZ Resection of Cecum, Open Approach (ICD-10-PCS; principal; 2020-08-17 19:30)
DX: K35.33 Acute appendicitis with perforation, localized peritonitis, and gangrene, with abscess (principal); K56.2 Volvulus; G89.18 Other acute postprocedural pain; E87.6 Hypokalemia; Z20.828 Contact with and (suspected) exposure to other viral communicable diseases; I10 Essential (primary) hypertension; E78.5 Hyperlipidemia, unspecified; Z79.899 Other long term (current) drug therapy; Z90.11 Acquired absence of right breast and nipple; Z85.3 Personal history of malignant neoplasm of breast; Z87.19 Personal history of other diseases of the digestive system; Z90.710 Acquired absence of both cervix and uterus
CPT/HCPCS: 36415; 74022; 74177; 790; 80053; 81001; 83605; 83690; 84484; 85025; 85610; 85730; 93005; 93010; 96361; 96365; 96375; 99140; 99285; 0241U; C1758; C9113; C9803; J0131; J0330; J1100; J1644; J1885; J2250; J2270; J2405; J2543; J2704; J2795; J3010; J3480; J3490; J7030; J7050; J7121